=== PATIENT | female | born 1935 | race Two or more races ===

== ENCOUNTER 2022-03-09 13:11 | Outpatient (CLI) | payer OTHER | END 2022-03-09 13:12 | disposition home or self-care (01) | LOC: NUCLEAR 13:11 | PROVIDERS: ATTEND Internal Medicine | DX: M81.0 Age-related osteoporosis without current pathological fracture (principal) ==

== ENCOUNTER 2022-03-09 15:20 | Outpatient (CLI) | payer OTHER | END 2022-03-09 15:25 | disposition home or self-care (01) | LOC: SONOGRAMA 15:20 | PROVIDERS: ATTEND Internal Medicine | DX: N20.0 Calculus of kidney (principal) ==

== ENCOUNTER 2023-05-30 14:10 | Outpatient (CLI) | payer OTHER | END 2023-05-30 14:11 | disposition home or self-care (01) | LOC: SONOGRAMA 14:10 | PROVIDERS: ATTEND Internal Medicine Rheumatology | DX: M75.81 Other shoulder lesions, right shoulder (principal) ==